=== PATIENT | male | born 1945 ===

== ENCOUNTER 2025-04-19 06:00 | Day surgery (SDC) | payer OTHER ==
[2025-04-12 09:01] VITALS: BP 124/90
[2025-04-12 09:28] LABS: BASO % 0.6 % (0.1-1.2); EOS # 0.11 (0.04-0.54); EOS % 1.6 % (0.7-7.0); LYMPH # 2.12 (1.18-3.74); LYMPH % 31.7 % (19.3-53.1); MEAN PLATELET VOLUME 10.50 fl (9.4-12.4); MONO # 0.63 (0.24-0.82); MONO % 9.4 % (4.7-12.5); NEUT # 3.76 (1.56-6.13); NEUT % 56.4 % (34.0-71.1); RED CELL DISTRIBUTION WIDTH 12.5 % (11.6-14.4)
[2025-04-12 09:50] LABS: INR 1.05
[2025-04-12 10:07] LABS: ALT/SGPT 25.0 U/L (12-78); AST/SGOT 20.0 U/L (15-37); BILIRUBIN TOTAL 0.71 mg/dL (0.3-1.2); BUN CREA RATIO 18.0 (7.0-25.0); CREATININE SERUM 1.17 mg/dL (0.70-1.30); GFR 60.45; GLOBULINA 3.8 G/DL (2.4-3.5); GLUCOSE FASTING 98.0 mg/dL (65-100); OSMOLALITY SERUM 288.0 MOSM/KG (275-295)
[~2025-04-19] VITALS: Ht 185.4 cm; Wt 95.3 kg
[~2025-04-19 06:00] MED LIST: AMLODIPINE BESYL5 MG PO; ELIQUIS5 MG PO; ISOSORBIDE MONO60 MG; LIPITOR20 MG; PRILOSEC OTC20 MG PO; TOPROL XL50 M1 PO
[2025-04-19] MEDS ORDERED: SUGAMMADEX SODIUM 200 MG/2 ML VIAL IV ONE (12:48)
== END 2025-04-19 15:55 | disposition home or self-care (01) ==
LOC: CIR.AMB 06:00
PROVIDERS: ATTEND Internal Medicine
DX: D13.2 Benign neoplasm of duodenum (principal); K44.9 Diaphragmatic hernia without obstruction or gangrene; K29.60 Other gastritis without bleeding; K80.20 Calculus of gallbladder without cholecystitis without obstruction; K31.7 Polyp of stomach and duodenum; Z86.0101 Personal history of adenomatous and serrated colon polyps

== ENCOUNTER 2025-06-24 10:00 | Day surgery (SDC) | payer OTHER ==
[2025-06-23 09:05] VITALS: BP 132/90
[2025-06-23 10:15] LABS: INR 1.07
[2025-06-23 10:39] LABS: ALT/SGPT 32.0 U/L (12-78); AST/SGOT 20.0 U/L (15-37); BILIRUBIN TOTAL 0.87 mg/dL (0.3-1.2); BUN CREA RATIO 18.0 (7.0-25.0); CREATININE SERUM 1.26 mg/dL (0.70-1.30); GFR 55.49; GLOBULINA 3.8 G/DL (2.4-3.5); GLUCOSE FASTING 102.0 mg/dL (65-100); OSMOLALITY SERUM 287.0 MOSM/KG (275-295)
[~2025-06-24] VITALS: Ht 185.4 cm; Wt 99.8 kg
[2025-06-24] MEDS ORDERED: GLUCAGON 1 MG VIAL ONE (11:50)
[2025-06-24] MEDS ORDERED: IOVERSOL 320 MG/ML - 50 ML VIAL IV ONE (11:50)
[2025-06-24] MEDS ORDERED: SUGAMMADEX SODIUM 200 MG/2 ML VIAL IV ONE (13:01)
[2025-06-24] MEDS ORDERED: DICLOFENAC SODIUM 100 MG SUPP.RECT RECTAL ONE (13:15)
== END 2025-06-24 17:10 | disposition home or self-care (01) ==
LOC: CIR.AMB 10:00
PROVIDERS: ATTEND Internal Medicine
DX: K31.7 Polyp of stomach and duodenum (principal); R93.2 Abnormal findings on diagnostic imaging of liver and biliary tract
CPT/HCPCS: 43274; 43277; C1748